=== PATIENT | male | born 1955 | race Caucasian/White ===

== ENCOUNTER 2020-08-27 09:37 | Emergency (ER) | payer MEDICARE, OTHER ==
--- NOTE | 2020-08-27 10:07 | EDM.PDOC ---
ED HPI GENERAL MEDICAL PROBLEM - General Chief Complaint: Head Injury Stated Complaint: HEAD INJURY/DIZZY Time Seen by Provider: 08/27/20 10:06 Source of Information: Reports: Patient History Limitations: Reports: No Limitations - History of Present Illness INITIAL COMMENTS - FREE TEXT/NARRATIVE: 65-year-old male presents to the ED with complaints of transient vertigo especially with getting up and down from lying position in bed. Patient did suffer an abrasion to his left occipital scalp at the time of injury which is adequately healing. He had blackness of his vision but he does not think that he lost consciousness completely. Injury occurred from running backwards while playing pickle ball 2 mornings ago. Landed hard on gymnasium floor primarily on the back of his head. Suffered an abrasion to the left elbow over the olecranon process and contusion to the left hip over the greater trochanteric process. Associated mild nausea persists with the vertigo symptoms. He has not had vertigo in the past. Denies any ringing in his ears. Eating and drinking adequately. Patient does have pain in his posterior neck as well as in his anterior neck i.e. strap muscles indicating a flexion extension type injury. Mild headache persists. Patient states currently he takes no medications. Onset: Sudden Onset Date: 08/25/20 Onset Time: 10:00 Duration: Day(s):, Getting Worse (Creased pain posterior and anterior neck associated with vertigo with movement of his head or neck.) Location: Reports: Head (Hit his occipital head hard on gymnasium floor 2 days ago. Suffered an abrasion to the left occiput.), Neck (Pain both posterior and anterior aspects of the neck. No problems swallowing.) Quality: Reports: Other (Vertigo with movement of the head or neck. Pain in the musculature of posterior and anterior neck. Mild transient nausea.) Severity: Moderate Improves with: Reports: Rest ( will prevent vertigo.) Worsens with: Reports: Movement (Jeni getting up from the lying position. Anterior neck pain worse with any rotation of the head or neck.) Context: Reports: Exercise (Fell backwards on gymnasium floor while playing pickle ball). 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 Genitourinary History: Reports: Renal Calculus Musculoskeletal History: Reports: Fracture, Other (See Below) (Patient has had arthroscopy right knee x2 for torn meniscus. He has had arthroscopy right shoulder for labrum tear. Currently having some pain in his left shoulder which is felt to be due to impingement syndrome.) Hematologic History: Reports: Iron Deficiency - Infectious Disease History Infectious Disease History: Reports: Measles, Mumps - Past Surgical History HEENT Surgical History: Reports: Adenoidectomy, Tonsillectomy GI Surgical History: Reports: Cholecystectomy Musculoskeletal Surgical History: Reports: Other (See Below) Other Musculoskeletal Surgeries/Procedures:: knee surgery, shoulder surgery. Social & Family History - Tobacco Use Tobacco Use Status *Q: Never Tobacco User - Caffeine Use Caffeine Use: Reports: Soda - Recreational Drug Use Recreational Drug Use: No - Living Situation & Occupation Living situation: Reports: ED ROS GENERAL - Review of Systems Review Of Systems: See Below Constitutional: Denies: Fever, Chills, Malaise, Weakness, Fatigue, Decreased Appetite, Weight Loss HEENT: Reports: Vertigo (Since hitting his head 2 days ago.). Denies: Dental Pain, Ear Discharge, Ear Pain, Glasses Respiratory: Reports: No Symptoms Cardiovascular: Reports: No Symptoms Endocrine: Reports: No Symptoms GI/Abdominal: Reports: Nausea (Transient nausea) : Reports: No Symptoms Musculoskeletal: Reports: Neck Pain, Other (Abrasion to the olecranon process of the elbow with no evidence of olecranon bursitis. Contusion left hip when he fell 2 days ago as well.) Skin: Reports: Other (Abrasion left occipital scalp and left extensor surface of elbow.) Neurological: Reports: Dizziness, Headache (Which is primarily vertigo symptoms with movement of the head or neck.). Denies: Confusion, Numbness, Paresthesia, Pre-Existing Deficit, Syncope, Tingling, Tremors, Trouble Speaking, Difficulty Walking, Weakness, Change in Speech, Gait Disturbance Psychiatric: Reports: No Symptoms Hematologic/Lymphatic: Reports: No Symptoms Immunologic: Reports: No Symptoms ED EXAM, HEAD INJURY - Physical Exam Exam: See Below Exam Limited By: No Limitations General Appearance: Alert, WD/WN, No Apparent Distress, Other (Temperature is 35 .2 which is an accurate. Heart rate is 76 in sinus respiratory 16 with O2 sats of 90% room air BP 1 3765.) Head: Scalp Abrasions (Occipital scalp abrasion measuring approximately 1.2 cm. Wound is healing satisfactorily very minimal subcutaneous hematoma in this area.) Nexus Criteria: Posterior, Midline Cervical Tenderness. No: Evidence of Intoxi cation, Altered Level of Consciousness, Focal Neurological Deficit, Painful Distraction Injuries Eyes: Bilateral Eye: Normal Inspection, PERRL Ears: Normal TMs Throat/Mouth: Normal Inspection, Normal Lips, Normal Teeth, Normal Oropharynx Neck: Full Range of Motion, Normal Alignment, Painful Range of Motion, Paraspinous Muscle Tender (Bilateral paraspinal muscle tenderness particularly C4-C7 level little worse on the left as compared to the right.), Spinous Processes Tender (Mid), Stiff Neck, Tender Lateral, Other (Patient also has pain in the anterior neck musculature i.e. strap muscles from flexion-extension injury. This is primarily in the sternocleidomastoid on exam). No: Abnormal Alignment Respiratory: No Respiratory Distress, Lungs Clear, Normal Breath Sounds Cardiovascular: Normal Peripheral Pulses, Regular Rate, Rhythm, No Edema, No Gallop, No Murmur, No Rub Extremities: Other (Superficial abrasions over the olecranon process left elbow. Full range of motion of arm. Some pain over the left greater trochanteric process of his hip on exam as well.) Neurologic: No Motor/Sensory Deficits, Alert, Normal Mood/Affect, Oriented x 3 Skin: Normal Color, Warm/Dry - Jin Coma Score Best Eye Response ([place]): (4) Open Spontaneously Best Verbal Response ([place]): (5) Oriented Best Motor Response ([place]): (6) Obeys Commands Jin Total: 15 Course - Vital Signs Last Recorded V/S: Last Vital Signs Temp 35.2 C L 08/27/20 09:45 Pulse 76 08/27/20 09:45 Resp 16 08/27/20 09:45 BP 137/65 08/27/20 09:45 Pulse Ox 98 08/27/20 09:45 - Radiology Interpretation Free Text/Narrative:: 65-year-old male attends the ED for evaluation of vertigo symptoms at developed after he fell backwards while playing pickle ball 2 days ago. He landed hard on the gymnasium floor the back of his head and had transient vision loss but no true loss of consciousness. He suffered an abrasion which was actively bleeding from the left occipital scalp but is subsequently healing adequately. Suffered an abrasion to the olecranon process of left elbow and contusion to his left hip over the greater trochanteric process. He appreciates pain in his anterior and anterior neck. Pain in the anterior neck is due to strain of the sternocleidomastoid and strap muscles of the neck. Does have diffuse tenderness throughout the paracervical muscles and ligaments bilaterally. He has full range of motion of his neck with crepitus on lateral rotation and flexion. No nystagmus. Neuro exam is otherwise normal. Plan CT head and neck to be done without contrast. - Re-Assessments/Exams Free Text/Narrative Re-Assessment/Exam: 08/27/20 11:00: ET cervical spine reveals degenerative changes noted between the dens and the anterior arch of C1. There appears to be partial fusion at the C2- 3 and the C3-4 level. Slight posterior disc space narrowing is noted at the C4- 5 level as well as mild to space narrowing at the C5-C6 level. Small scattered calcifications are seen which are felt to be degenerative posteriorly at C4-5, anteriorly at C5-6 and anteriorly at C6-7 levels. Diffuse degenerative apophyseal changes noted throughout the spine. No central canal stenosis or discrete neuroforaminal stenosis is seen. No acute fracture or subluxation is appreciated. CT of the head without contrast reveals ventricles along with the basal cisterns and sulci over the convexities to be within normal limits for the patient's age. No abnormal parenchymal densities are seen. No evidence of intracranial hemorrhage. No midline shift or mass-effect is seen. Minimal mucosal thickening is partially seen within the left maxillary sinus. Visualized mastoid sinuses are clear. No acute calvarial findings are appreciated. Patient advised of the findings on the CT exam. It appears that muscle strain of the anterior and posterior neck is occurred secondary to the flexion extension type injury he suffered from falling backwards. Vertigo is that of benign positional vertigo secondary to fall. Tentatively symptoms should improve over the next 5 to 7 days. If not he needs to be seen again. Of note there was no blood behind either tympanic membrane on exam. At this time advised Motrin 600 mg every 6 hours as needed. He may go and bean picker some Antivert if his vertigo symptoms worsen over the next couple of days particular fits associate with nausea. Departure - Departure Time of Disposition: 11:04 Disposition: Home, Self-Care 01 Condition: Fair Clinical Impression: Strain of neck muscle Sprain of cervical neck Qualifiers: Encounter type: initial encounter Qualified Code(s): S13.9XXA - Sprain of joints and ligaments of unspecified parts of neck, initial encounter Benign positional vertigo Qualifiers: Laterality: unspecified laterality Qualified Code(s): H81.10 - Benign paroxysmal vertigo, unspecified ear - Discharge Information *PRESCRIPTION DRUG MONITORING PROGRAM REVIEWED*: Not Applicable *COPY OF PRESCRIPTION DRUG MONITORING REPORT IN PATIENT DAVID: Not Applicable Instructions: Vertigo, Cervical Sprain, [id number] Referrals: PCP,Not In Area [Primary Care Provider] - Forms: ED Department Discharge Additional Instructions: Evaluation in the emergency room today in regards to closed head injury related to a fall while playing sports 2 days ago. Blunt force trauma occurred to the occipital skull when you hit the gymnasium floor. Since and have developed increased tenderness in the muscles both in the posterior and anterior aspect of the neck due to muscle and ligament strain. Concern arises due to increased vertigo symptoms with movement of the head or neck over the last 2 days. Mild associated intermittent nausea with the vertigo. CT scan of the head reveals no intracranial bleeding or mass-effect and no injury to the cerebellum which is the part of our brain that controls her balance. 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 Treatment at this time is conservative with time to heal. Usually strain of the muscles of the neck are worse 24 to 48 hours after injury and then gradually improve over a period of 7 to 10 days. The vertigo symptoms should go away over the next 4 to 5 days. If symptoms persist you may bean picker a medication [id number] called Antivert 12.5 mg tablet. You can take 2 tablets every 8 hours for 3 to 5 days to improve vertigo symptoms and lessen the severity if not getting better in the next 4 to 5 days. I anticipate that the vertigo will go away over the next 5 days on its own. No problem with taking Motrin 600 mg every 6 hours needed for neck and muscular pain. Follow-up would be required if you are still having vertigo symptoms in a week's time. Sepsis Event Note (ED) - Evaluation Sepsis Screening Result: No Definite Risk - Focused Exam Vital Signs: Vital Signs Temp Pulse Resp BP Pulse Ox 08/27/20 09:45 35.2 C L 76 16 137/65 98
--- NOTE | 2020-08-27 11:01 | CT ---
CT cervical spine Technique: Multiple axial sections were obtained from above C1 inferiorly through the lower T1 level. Reconstructed coronal and sagittal images were obtained. Findings: Degenerative change is noted between the dens and anterior arch of C1. There appears to be partial fusion at C2-3 and C3-4. Slight posterior disc space narrowing is noted at C4-5 as well as mild disc space narrowing at C5-6. Small scattered calcifications are seen which are felt to be degenerative posteriorly at C4-5, anteriorly at C5-6 and anteriorly at C6-7. Diffuse degenerative apophyseal change is noted throughout the spine. No central canal stenosis or discrete neural foraminal stenosis is seen. No acute fracture or subluxation is appreciated. Impression: 1. Presumed surgery at C2-3 and C3-4. 2. Diffuse degenerative change as noted above. 3. No acute abnormality is appreciated on CT study of the cervical spine. Diagnostic code #2
--- NOTE | 2020-08-27 11:05 | CT ---
Head CT Technique: Multiple axial sections through the brain were obtained. Intravenous contrast was not utilized. Reconstructed coronal and sagittal images were obtained. Bone window settings were also obtained. Comparison: No previous head imaging is available. Findings: Ventricles along with basal cisterns and sulci over the convexities are within normal limits for the patient's age. No abnormal parenchymal densities are seen. No evidence of intracranial hemorrhage. No midline shift or mass-effect is seen. Minimal mucosal thickening is partially seen within the left maxillary sinus. Visualized mastoid sinuses are clear. No acute calvarial finding is appreciated. Impression: 1. Minimal sinus finding which is believed to be incidental. 2. Nothing acute is appreciated on noncontrast CT study of the brain. Diagnostic code #2
== END 2020-08-27 11:14 | disposition home or self-care (01) ==
LOC: JD.ED 09:37
DX: S13.4XXA Sprain of ligaments of cervical spine, initial encounter (principal); S16.1XXA Strain of muscle, fascia and tendon at neck level, initial encounter; S70.02XA Contusion of left hip, initial encounter; S50.312A Abrasion of left elbow, initial encounter; H81.10 Benign paroxysmal vertigo, unspecified ear; W18.30XA Fall on same level, unspecified, initial encounter; Y93.02 Activity, running
CPT/HCPCS: 70450; 70450-26; 72125; 72125-26; 99283-25; 99284